=== PATIENT | female | born 1960 | race African-American/Black ===

== ENCOUNTER → 2023-12-09 10:30 | Outpatient (REF) | payer OTHER, SELFPAY | LOC: RCS 10:30 | PROVIDERS: ATTENDING PHYSICIAN Student in an Organized Health Care Education/Training Program | DX: I10 Essential (primary) hypertension (principal) | CPT/HCPCS: 93005 ==

== ENCOUNTER → 2024-02-14 06:50 | Outpatient (REF) | payer OTHER, SELFPAY | LOC: RAD 06:50 | PROVIDERS: ATTENDING PHYSICIAN Student in an Organized Health Care Education/Training Program | DX: I1A.0 Resistant hypertension (principal) | CPT/HCPCS: 93975 ==

== ENCOUNTER → 2024-05-25 13:45 | Outpatient (REF) | payer OTHER, SELFPAY | LOC: WDC 13:45 | PROVIDERS: ATTENDING PHYSICIAN Student in an Organized Health Care Education/Training Program | DX: Z12.31 Encounter for screening mammogram for malignant neoplasm of breast (principal) | CPT/HCPCS: 77063; 77067 ==

== ENCOUNTER 2024-11-01 07:53 | Outpatient (RCR) | payer OTHER, SELFPAY ==
[2024-11-01 08:00] VITALS: BP 206/86
[2024-11-01] MEDS: NSS 1000 IV ×2 (08:15→10:14)
[2024-11-01 08:47] LABS: Potassium 3.6 mmol/L (3.5-5.1)
[2024-11-01 12:41] VITALS: BP 211/96
[2024-11-03 20:00] LABS: Renin Activity Results <0.1 ng/mL/hr
[2024-11-04 18:29] LABS: Renin Activity Results 0.2 ng/mL/hr
== END 2024-11-04 15:01 | disposition home or self-care (01) ==
LOC: OID 07:53
PROVIDERS: ATTENDING PHYSICIAN Internal Medicine Endocrinology, Diabetes & Metabolism; FAMILY PHYSICIAN Student in an Organized Health Care Education/Training Program
DX: I10 Essential (primary) hypertension (principal)
CPT/HCPCS: 82088; 84132; 84244; 96360; 96361